=== PATIENT | male | born 1960 | race Caucasian/White ===

== ENCOUNTER 2018-02-09 21:47 | Emergency (ER) | payer BC ==
[~2018-02-09] VITALS: Ht 165.1 cm; Wt 81.6 kg
[~2018-02-09 21:47] MED LIST: AMLODIPINE-BEN1 EAC3 PO; ASPIRIN81 MG PO; LIPITOR20 MG PO
[2018-02-09] MEDS ORDERED: PANTOPRAZOLE SO40 MG PO (21:54)
[2018-02-09] MEDS ORDERED: LOSARTAN POTASS50 MG PO (21:54)
[2018-02-09 22:33] LABS: BASOPHILS # (AUTO) 0.1 (0.0-0.1); BASOPHILS % 0.6 % (0.0-1.0); EOSINOPHILS # (AUTO) 0.3 (0.0-0.4); EOSINOPHILS % 2.9 % (0.0-6.0); HEMATOCRIT 41.9 % (38.2-49.6); HEMOGLOBIN 14.8 g/dL (14.0-18.0); LYMPHOCYTES # (AUTO) 2.2 (1.0-3.2); LYMPHOCYTES % 25.6 % (18.0-39.1); MEAN CORPUSCULAR HEMOGLOBIN 30.6 pg (28-32); MEAN CORPUSCULAR HGB CONC 35.3 g/dL (31-35); MEAN CORPUSCULAR VOLUME 86.7 fL (81-99); MONOCYTES # (AUTO) 0.6 (0.2-0.8); MONOCYTES % 6.8 % (4.4-11.3); NEUTROPHILS # (AUTO) 5.4 (2.1-6.9); NEUTROPHILS % 63.7 % (38.7-80.0); PLATELET COUNT 267 x10e3/uL (140-360); RED BLOOD COUNT 4.83 x10e6/uL (4.3-5.7); RED CELL DISTRIBUTION WIDTH 11.9 % (11.7-14.4)
[2018-02-09 22:35] LABS: CLARITY,URINE CLEAR (CLEAR); COLOR,URINE YELLOW (YELLOW); LEUKOCYTE ESTERASE ,URINE NEGATIVE (NEGATIVE); NITRITE,URINE NEGATIVE (NEGATIVE)
[2018-02-09 22:36] LABS: BILIRUBIN,URINE NEGATIVE (NEGATIVE); KETONES,URINE NEGATIVE (NEGATIVE); PROTEIN,URINE DIPSTICK TRACE (NEGATIVE); URINE UROBILINOGEN 0.2 mg/dL (0.2 - 1)
[2018-02-09 22:43] LABS: AMYLASE 67 U/L (25-125)
[2018-02-09 22:45] LABS: WBC,URINE (MAN) 0-5 /HPF (0-5)
[2018-02-09 22:46] LABS: BACTERIA,URINE FEW /HPF; EPITHELIAL CELLS,URINE RARE /LPF; RBC,URINE 21-50 /HPF (0-5)
[2018-02-09 22:51] LABS: ALBUMIN 3.8 g/dL (3.5-5.0); ALBUMIN/GLOBULIN RATIO 1.2 (0.8-2.0); ANION GAP 13.4 mmol/L (8-16); CALCIUM 9.2 mg/dL (8.4-10.2); CREATININE, SERUM 1.26 mg/dL (0.72-1.25); POTASSIUM 3.4 mmol/L (3.5-5.1)
[2018-02-09 23:12] LABS: LIPASE 48 U/L (8-78)
--- NOTE | 2018-02-10 00:21 | Diagnostic Imaging Report ---
EXAM: CT ABDOMEN/PELVIS WO DATE: 02/09/2018 10:51 PM INDICATION: Kidney stone, left-sided flank pain COMPARISON: None TECHNIQUE: The abdomen and pelvis were scanned using a multidetector helical scanner. Coronal and sagittal reformations were obtained. IV Contrast: 0 ml Isovue 300/370 FINDINGS: Lack of IV contrast decreases sensitivity in evaluating abdominal and pelvic organs. LOWER THORAX: No consolidations LIVER/BILIARY: No masses. No ductal dilatation. GALLBLADDER: Cholelithiasis. Otherwise unremarkable SPLEEN: Unremarkable PANCREAS: Unremarkable ADRENALS: No nodules KIDNEYS: No stones. No hydronephrosis. There is a 1.8 cm benign-appearing right inferior renal cystic lesion. GI TRACT: No wall thickening or evidence of obstruction. Diverticulosis. Normal appendix. VESSELS: Scattered atherosclerotic calcifications. PERITONEUM/RETROPERITONEUM: No free air or fluid LYMPH NODES: No lymphadenopathy REPRODUCTIVE ORGANS/BLADDER: Unremarkable SOFT TISSUES: Small fat-containing umbilical and left inguinal hernia. BONES: Degenerative changes, worse of the right greater than left L5-S1 facet joints. IMPRESSION: No nephrolithiasis or obstructive uropathy. Signed by: Dr Jessie Diaz MD on 02/10/2018 12:17 AM
== END 2018-02-10 01:00 | disposition home or self-care (01) ==
LOC: ER 21:47
DX: R31.9 Hematuria, unspecified (principal); R10.9 Unspecified abdominal pain; K40.90 Unilateral inguinal hernia, without obstruction or gangrene, not specified as recurrent; I10 Essential (primary) hypertension
CPT/HCPCS: 36415; 74176; 80053; 81001; 82150; 83605; 83690; 85025; 99284

== ENCOUNTER 2018-09-07 21:57 | Emergency (ER) | payer BC, OTHER ==
[~2018-09-07] VITALS: Ht 165.1 cm; Wt 81.6 kg
[~2018-09-07 21:57] MED LIST changes: +LOSARTAN POTASS50 MG PO; +PANTOPRAZOLE SO40 MG PO
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
--- OUTSIDE RECORDS SUMMARY | 2018-09-07 22:01 | XMS REPORT | Continuity of Care Document ---
Author Author [facility] Interface Address Unknown Phone Unavailable Problems Problem Status Onset Date Classification Date Reported Comments Source Feeling feverish 10/13/2017 Diagnosis 10/13/2017 [facility] Acute pharyngitis 10/13/2017 Diagnosis 10/13/2017 [facility] Acute conjunctivitis 10/13/2017 Diagnosis 10/13/2017 [facility] Allergic rhinitis 10/13/2017 Diagnosis 10/13/2017 [facility] Acute sinusitis 10/13/2017 Diagnosis 10/13/2017 [facility] Body mass index 30+ - obesity 10/13/2017 Diagnosis 10/13/2017 [facility] Hypertensive disorder 10/13/2017 Diagnosis 10/13/2017 [facility] Hypercholesterolemia 10/13/2017 Problem 10/13/2017 [facility] Hypertensive Disorder 10/13/2017 Problem 10/13/2017 [facility] Infection of skin 04/02/2017 Diagnosis 04/02/2017 [facility] Rhinitis 04/02/2017 Diagnosis 04/02/2017 [facility] Acute Sinusitis Problem 07/06/2017 [facility] Noninfectious Gastroenteritis Problem 07/06/2017 [facility] Contact Dermatitis Due to Plants, Except Food Problem 07/06/2017 [facility] Medications Medication Details Route Status Patient Instructions Ordering Provider Order Date Source atorvastatin 10 MG Oral Tablet atorvastatin 10 mg tablet TK 1 T PO QHS Active [facility] atorvastatin 20 MG Oral Tablet atorvastatin 20 mg tablet TK 1 T PO ONCE D Active [facility] benzonatate 200 MG Oral Capsule benzonatate 200 mg capsule TK ONE C PO TID PRN Active [facility] doxycycline hyclate 100 MG Oral Capsule doxycycline hyclate 100 mg capsule Take 1 capsule twice a day by oral route for 10 days. Active [facility] Fluticasone propionate 0.05 MG/ACTUAT Metered Dose Nasal [place] fluticasone 50 mcg/actuation nasal spray,suspension [place] 1 spray twice a day by intranasal route for 14 days. Active [facility] levocetirizine dihydrochloride 5 MG Oral Tablet levocetirizine 5 mg tablet TK 1 T PO QD PRN Active [facility] Losartan Potassium 50 MG Oral Tablet losartan 50 mg tablet TK 1 T PO ONCE D FOR BP Active [facility] Acetaminophen 500 MG Oral Tablet [Mapap] Mapap Extra Strength 500 mg tablet TK 2 TS PO Q 8 H PRN P Active [facility] pantoprazole 40 MG Delayed Release Oral Tablet pantoprazole 40 mg tablet,delayed release TK 1 T PO ONCE D FOR STOMACH ACID Active [facility] Polymyxin B 73864 UNT/ML / Trimethoprim 1 MG/ML Ophthalmic Solution polymyxin B sulfate 10,000 unit-trimethoprim 1 mg/mL eye drops INSTILL 1 DROP INTO AFFECTED EYE(S) BY OPHTHALMIC ROUTE EVERY 6 HOURS x 7 days Active [facility] 0.5 ML diphtheria toxoid vaccine, inactivated 4 UNT/ML / tetanus toxoid vaccine, inactivated 4 UNT/ML Injection tetanus-diphtheria toxoids- Td 2 Lf unit-2 Lf unit/0.5 mL IM suspension IMMUNIZATION GIVEN Active [facility] Cephalexin 500 MG Oral Capsule [Keflex] Keflex 500 mg capsule Take 1 capsule every 12 hours by oral route as directed for 10 days. Active [facility] Mupirocin 0.02 MG/MG Topical Ointment mupirocin 2 % topical ointment APPLY A SMALL AMOUNT TO THE AFFECTED AREA BY TOPICAL ROUTE 1 TIME PER DAY X 7 DAYS. Active [facility] Amoxicillin 875 MG / Clavulanate 125 MG Oral Tablet [Augmentin] Augmentin 875 mg-125 mg tablet Take 1 tablet every 12 hours by oral route with meals for 10 days. Active [facility] Aspirin 81 Mg Tab.chew Daily Active [facility] Atorvastatin Calcium (Lipitor) 20 Mg Tablet Daily Active [facility] Losartan Potassium 50 Mg Tablet Daily Active [facility] Pantoprazole Sodium (Protonix) 40 Mg Tablet.dr Daily Active [facility] Allergies, Adverse Reactions, Alerts Substance Category Reaction Severity Reaction type Status Date Reported Comments Source Levaquin Allergy to substance 08/18/2010 [facility] Levofloxacin PHELIBITIS, ITCHING Severe Allergy to Substance Active 10/27/2012 [facility] Immunizations Immunization Date Given Site Status Last Updated Comments Source Td (adult) 07/09/2017 completed [facility] influenza, unspecified formulation 05/11/2016 completed [facility] Tdap 07/11/2004 completed [facility] Results Order Name Results Value Reference Range Date Interpretation Comments Source Automated blood basophil count (count/volume) Automated blood basophil count (count/volume) 0.1 0.0 - 0.1 02/09/2018 [facility] Automated blood basophil count as percentage of total leukocytes Automated blood basophil count as percentage of total leukocytes 0.6 0.0 - 1.0 02/09/2018 [facility] Automated blood eosinophil count Automated blood eosinophil count 0.3 0.0 - 0.4 02/09/2018 [facility] Automated blood eosinophil count as percentage of total leukocytes Automated blood eosinophil count as percentage of total leukocytes 2.9 0.0 - 6.0 02/09/2018 [facility] Automated blood hematocrit (volume fraction) Automated blood hematocrit (volume fraction) 41.9 38.2 - 49.6 02/09/2018 [facility] Automated blood lymphocyte count as percentage ot total leukocytes Automated blood lymphocyte count as percentage ot total leukocytes 25.6 18.0 - 39.1 02/09/2018 [facility] Automated blood monocyte count as percentage of total leukocytes Automated blood monocyte count as percentage of total leukocytes 6.8 4.4 - 11.3 02/09/2018 [facility] Automated blood neutrophil count Automated blood neutrophil count 5.4 2.1 - 6.9 02/09/2018 [facility] Automated blood platelet count (count/volume) Automated blood platelet count (count/volume) 267 140 - 360 02/09/2018 [facility] Automated blood segmented neutrophil count as percentage of total leukocytes Automated blood segmented neutrophil count as percentage of total leukocytes 63.7 38.7 - 80.0 02/09/2018 [facility] Automated erythrocyte mean corpuscular hemoglobin (mass per erythrocyte) Automated erythrocyte mean corpuscular hemoglobin (mass per erythrocyte) 30.6 28 - 32 02/09/2018 [facility] Automated erythrocyte mean corpuscular hemoglobin concentration measurement (mass/volume) Automated erythrocyte mean corpuscular hemoglobin concentration measurement (mass/volume) 35.3 31 - 35 02/09/2018 [facility] Automated erythrocyte mean corpuscular volume Automated erythrocyte mean corpuscular volume 86.7 81 - 99 02/09/2018 [facility] Automated urine sediment leukocyte count by microscopy (number/high power field) Automated urine sediment leukocyte count by microscopy (number/high power field) null 0 - 5 02/09/2018 [facility] Bacteria detection in urine sediment by light microscopy Bacteria detection in urine sediment by light microscopy FEW NONE 02/09/2018 [facility] Blood erythrocytes automated count (number/volume) Blood erythrocytes automated count (number/volume) 4.83 4.3 - 5.7 02/09/2018 [facility] Blood hemoglobin measurement (moles/volume) Blood hemoglobin measurement (moles/volume) 14.8 14.0 - 18.0 02/09/2018 [facility] Blood leukocytes automated count (number/volume) Blood leukocytes automated count (number/volume) 8.52 4.8 - 10.8 02/09/2018 [facility] Blood lymphocytes count (number/volume) Blood lymphocytes count (number/volume) 2.2 1.0 - 3.2 02/09/2018 [facility] Blood monocytes automated count (number/volume) Blood monocytes automated count (number/volume) 0.6 0.2 - 0.8 02/09/2018 [facility] Epithelial cells detection in urine sediment by light microscopy Epithelial cells detection in urine sediment by light microscopy RARE NONE 02/09/2018 [facility] Erythrocytes detection in urine sediment by light microscopy Erythrocytes detection in urine sediment by light microscopy null 0 - 5 02/09/2018 [facility] Estimated glomerular filtration rate (GFR) determination Estimated glomerular filtration rate (GFR) determination 59 60 02/09/2018 [facility] Glucose measurement Glucose measurement 151 74 - 118 02/09/2018 [facility] Plasma globulin measurement (mass/volume) Plasma globulin measurement (mass/volume) 3.2 2.3 - 3.5 02/09/2018 [facility] Serum or plasma alanine aminotransferase measurement (enzymatic activity/volume) Serum or plasma alanine aminotransferase measurement (enzymatic activity/volume) 26 0 - 55 02/09/2018 [facility] Serum or plasma albumin measurement (mass/volume) Serum or plasma albumin measurement (mass/volume) 3.8 3.5 - 5.0 02/09/2018 [facility] Serum or plasma albumin/globulin mass ratio Serum or plasma albumin/globulin mass ratio 1.2 0.8 - 2.0 02/09/2018 [facility] Serum or plasma alkaline phosphatase measurement (enzymatic activity/volume) Serum or plasma alkaline phosphatase measurement (enzymatic activity/volume) 74 40 - 150 02/09/2018 [facility] Serum or plasma amylase measurement (enzymatic activity/volume) Serum or plasma amylase measurement (enzymatic activity/volume) 67 25 - 125 02/09/2018 [facility] Serum or plasma anion gap Serum or plasma anion gap 13.4 8 - 16 02/09/2018 [facility] Serum or plasma calcium measurement (mass/volume) Serum or plasma calcium measurement (mass/volume) 9.2 8.4 - 10.2 02/09/2018 [facility] Serum or plasma carbon dioxide, total measurement (moles/volume) Serum or plasma carbon dioxide, total measurement (moles/volume) 23 22 - 29 02/09/2018 [facility] Serum or plasma chloride measurement (moles/volume) Serum or plasma chloride measurement (moles/volume) 106 98 - 107 02/09/2018 [facility] Serum or plasma creatinine measurement (mass/volume) Serum or plasma creatinine measurement (mass/volume) 1.26 0.72 - 1.25 02/09/2018 [facility] Serum or plasma lipase measurement (enzymatic activity/volume) Serum or plasma lipase measurement (enzymatic activity/volume) 48 8 - 78 02/09/2018 [facility] Serum or plasma potassium measurement (moles/volume) Serum or plasma potassium measurement (moles/volume) 3.4 3.5 - 5.1 02/09/2018 [facility] Serum or plasma protein measurement (mass/volume) Serum or plasma protein measurement (mass/volume) 7.0 6.5 - 8.1 02/09/2018 [facility] Serum or plasma sodium measurement (moles/volume) Serum or plasma sodium measurement (moles/volume) 139 136 - 145 02/09/2018 [facility] Serum or plasma total bilirubin measurement (mass/volume) Serum or plasma total bilirubin measurement (mass/volume) 0.8 0.2 - 1.2 02/09/2018 [facility] Serum or plasma urea nitrogen measurement (mass/volume) Serum or plasma urea nitrogen measurement (mass/volume) 16 7 - 26 02/09/2018 [facility] Serum or plasma urea nitrogen/creatinine mass ratio Serum or plasma urea nitrogen/creatinine mass ratio 13 6 - 25 02/09/2018 [facility] Specific gravity of Urine by Test strip Specific gravity of Urine by Test strip 1.020 1.010 - 1.025 02/09/2018 [facility] Urine clarity Urine clarity CLEAR CLEAR 02/09/2018 [facility] Urine color determination Urine color determination YELLOW YELLOW 02/09/2018 [facility] Urine erythrocytes detection Urine erythrocytes detection 2+ NEGATIVE 02/09/2018 [facility] Urine glucose detection Urine glucose detection NEGATIVE NEGATIVE 02/09/2018 [facility] Urine ketones detection by automated test strip Urine ketones detection by automated test strip NEGATIVE NEGATIVE 02/09/2018 [facility] Urine leukocyte esterase detection by dipstick Urine leukocyte esterase detection by dipstick NEGATIVE NEGATIVE 02/09/2018 [facility] Urine nitrite detection Urine nitrite detection NEGATIVE NEGATIVE 02/09/2018 [facility] Urine pH measurement by automated test strip Urine pH measurement by automated test strip 6 5 - 7 02/09/2018 [facility] Urine protein measurement by test strip (mass/volume) Urine protein measurement by test strip (mass/volume) TRACE NEGATIVE 02/09/2018 [facility] Urine total bilirubin measurement (mass/volume) Urine total bilirubin measurement (mass/volume) NEGATIVE NEGATIVE 02/09/2018 [facility] Urine urobilinogen measurement by test strip (mass/volume) Urine urobilinogen measurement by test strip (mass/volume) 0.2 0.2 - 1 02/09/2018 [facility] Red Cell Distribution Width 11.9 11.7 - 14.4 02/09/2018 [facility] IM GRANULOCYTES % 0.4 0.0 - 1.0 02/09/2018 [facility] Absolute Immature Granulocyte (auto 0.03 0 - 0.1 02/09/2018 [facility] Lactic Acid Level 14.3 4.5 - 19.8 02/09/2018 [facility] Aspartate Amino Transf (AST/SGOT) 23 5 - 34 02/09/2018 [facility] Adenovirus Ag [Presence] in Unspecified specimen by Immunoassay RESULT negative 10/13/2017 [facility] Adenovirus Ag [Presence] in Unspecified specimen by Immunoassay SWAB LOCATION Right Conjunctiva 10/13/2017 [facility] Influenza A negative 10/13/2017 [facility] Influenza B negative 10/13/2017 [facility] RESULT negative 10/13/2017 [facility] SWAB LOCATION Left and Right tonsillar pillars 10/13/2017 [facility] Influenza A negative 07/06/2017 [facility] Influenza B negative 07/06/2017 [facility] Vital Signs Vital Sign Value Date Comments Source Diastolic (mm Hg) 92 10/13/2017 [facility] Height 65 10/13/2017 [facility] Systolic (mm Hg) 150 10/13/2017 [facility] Weight 180 10/13/2017 [facility] Diastolic (mm Hg) 82 07/06/2017 [facility] Height 65 07/06/2017 [facility] Systolic (mm Hg) 126 07/06/2017 [facility] Weight 175 07/06/2017 [facility] Diastolic (mm Hg) 90 04/02/2017 [facility] Height 65 04/02/2017 [facility] Systolic (mm Hg) 138 04/02/2017 [facility] Weight 180 04/02/2017 [facility] Encounters Location Location Details Encounter Type Encounter Number Reason For Visit Attending Provider ADM Date DC Date Status Source [place] - [facility] - [id number] ChowP-C: [address], [place] [address], Ph. [id number] Leah Aleshia 04/02/2017 [facility] [place] - [facility] - [id number] Nolberto Hernandez, ACTIVATED SLUDGE OPERATOR-C: [address] [facility], [place] [address], Ph. [phone] [id number] Nolberto Hernandez 07/06/2017 [facility] [place] [facility] - [id number] Abigail Ramirez, ACTIVATED [employer]UD[employer] OPERATOR-C: [address] [facility], [place] [address], Ph. [id number] Abigail Ramirez 10/13/2017 [facility] Departed Emergency Room [id number] DEMETRIUS MILAN MD 02/09/2018 02/10/2018 [facility] Procedures Procedure Code Date Perfomer Comments Source CT of abdomen and pelvis without contrast [id number] 02/09/2018 [facility]
--- OUTSIDE RECORDS SUMMARY | 2018-09-07 22:01 | XMS REPORT | Encounter Summary ---
Author Organization Unknown Address [address] [place] [address] Phone [phone] Care Team Providers Care Delivery Clerk Name Role Phone Obdulio Bass MD 3 [phone] Reason for Visit Medical Complaint Instructions 1. Acute sinusitis sinusitis: care instructions Augmentin 875 mg-125 mg tablet benzonatate 200 mg capsule 2. Feeling feverish rapid flu (A+B) Discussion Note: None recorded. Plan of Care Patient Instructions continue with jake bowen as needed. follow up pcp Reminders Provider Appointments None recorded. Lab Rapid Flu (A+B) 07/06/2017 [facility] Referral None recorded. Procedures None recorded. Surgeries None recorded. Imaging None recorded. Medications Name Start Date atorvastatin 10 mg tablet TK 1 T PO QHS atorvastatin 20 mg tablet TK 1 T PO ONCE D Augmentin 875 mg-125 mg tablet Take 1 tablet every 12 hours by oral route with meals for 10 days. benzonatate 200 mg capsule Take 1 capsule 3 times a day by oral route as needed. fluticasone 50 mcg/actuation nasal spray,suspension USE 2 SPRAYS IEN PRN FOR 10 DAYS levocetirizine 5 mg tablet TK 1 T PO QD PRN losartan 50 mg tablet TK 1 T PO ONCE D FOR BP Mapap Extra Strength 500 mg tablet TK 2 TS PO Q 8 H PRN P pantoprazole 40 mg tablet,delayed release TK 1 T PO ONCE D FOR STOMACH ACID tetanus-diphtheria toxoids-Td 2 Lf unit-2 Lf unit/0.5 mL IM suspension IMMUNIZATION GIVEN Medications Administered None recorded. Vitals Height Weight BMI Blood Pressure 5 ft 5 in 175 lbs 29.1 kg/m2 126/82 mm[Hg] Lab Results Date Name Specimen Result Interpretation Description Value Range Status Address Rapid Flu (A+B) Influenza a negative [facility]: [address] [place] [address] Influenza B negative [facility]: [address] [place] [address] Allergies Code Code System Name Reaction Severity Status Onset 952705 RxNorm Levaquin Active Problems Name Status Onset Date Source Acute Sinusitis Active Encounter Noninfectious Gastroenteritis Active Encounter Contact Dermatitis Due to Plants, Except Food Active Encounter Procedures None recorded. Vaccine List Vaccine Type influenza, unspecified formulation 05/11/2016 Tdap 07/11/2004 Social History Smoking Status Never Smoker Past Encounters 07/06/2017 Acute Sinusitis; Feeling Feverish Nolberto Hernandez, [employer]-C: [address] [facility], [place] [address], Ph. History of Present Illness Earas-Eyzkscsgrc-Pvtrffg Reported By: Patient HPI: Location: head/sinuses, chest. Quality: productive cough, colored phlegm, nasal/sinus congestion. Duration: 7days. Severity: moderate. Onset/Timing: gradual. Context: no sick contacts, no foreign travel, non-smoker. Modifying factors: OTC medication. Associated Symptoms: no shortness of breath, no wheezing, no change in number of pillows needed to sleep at night, no sweats, no significant weight gain, no significant weight loss, no morning cough, no sore throat, no vomiting, no diarrhea, no rash, no nausea, no fever, no muscle aches, no headache, green sputum Review of Systems:ROS as noted in the HPI Review of Systems Basic Reported By: Patient Physical Exam Adult Basic, Adult Male Complete Reported By: Patient Constitutional: General Appearance: healthy-appearing, well-nourished, well-developed. Level of Distress: NAD. Ambulation: ambulating normally Psychiatric: Mental Status: active and alert Eyes: Lids and Conjunctivae: non-injected, no discharge Hnq-Jfmq-Gouff-Throat: Ears: no lesions on external ear, no outer ear tenderness, EACs clear, TMs clear, TM mobility normal. Hearing: no hearing loss. Nose: no lesions on external nose, sinus tenderness, nasal discharge--purulent; congestion. Lips, Teeth, and Gums: no mouth or lip ulcers. Oropharynx: moist mucous membranes, no erythema, no exudates, tonsils not enlarged Neck: Neck: trachea midline. Lymph Nodes: no cervical LAD Lungs: Respiratory effort: no dyspnea, no tachypnea, no use of accessory muscles, no intercostal retractions. Auscultation: breath sounds normal, good air movement Cardiovascular: Heart Auscultation: RRR, no murmurs
--- OUTSIDE RECORDS SUMMARY | 2018-09-07 22:01 | XMS REPORT ---
Author Author [facility] Address Unknown Phone Unavailable Care Team Providers Care Electronic Resources Librarian Name Role Phone Kassi MILAN Unavailable Unavailable Problems This patient has no known problems. Allergies, Adverse Reactions, Alerts This patient has no known allergies or adverse reactions. Medications This patient has no known medications. Results Test Description Test Time Test Comments Text Results Atomic Results Result Comments CT ABDOMEN/PELVIS WO 2018-02-10 00:13:00 [place] [address] Patient Name: DELIO BENEDICT MR #: [id number] : 1960 Age/Sex: 57/M Req #: [id number] Adm Physician: Ordered by: DEMETRIUS MILAN MD Report #: [id number] Location: ER Room/Bed: Procedure: [id number] CT/CT ABDOMEN/PELVIS WO Exam Date: Exam Time: REPORT STATUS: Signed EXAM: CT ABDOMEN/PELVIS WO DATE: 02/09/2018 10:51 PM INDICATION: Kidney stone, left-sided flank pain COMPARISON: None TECHNIQUE: The abdomen and pelvis were scanned using a multidetector helical scanner. Coronal and sagittal reformations were obtained. IV Contrast: 0 ml Isovue 300/370 FINDINGS: Lack of IV contrast decreases sensitivity in evaluating abdominal and pelvic organs. LOWER THORAX: No consolidations LIVER/BILIARY: No masses. No ductal dilatation. GALLBLADDER: Cholelithiasis. Otherwise unremarkable SPLEEN: Unremarkable PANCREAS: Unremarkable ADRENALS: No nodules KIDNEYS: No stones. No hydronephrosis. There is a 1.8 cm benign- appearing right inferior renal cystic lesion. GI TRACT: No wall thickening or evidence of obstruction. Diverticulosis. Normal appendix. VESSELS: Scattered atherosclerotic calcifications. PERITONEUM/RETROPERITONEUM: No free air or fluid LYMPH NODES: No lymphadenopathy REPRODUCTIVE ORGANS/BLADDER: Unremarkable SOFT TISSUES: Small fat-containing umbilical and left inguinal hernia. BONES: Degenerative changes, worse of the right greater than left L5- S1 facet joints. IMPRESSION: No nephrolithiasis or obstructive uropathy. Signed by: Dr Ju Diaz MD on 02/10/2018 12:17 AM Dictated By: JU DIAZ MD Transcribed By: WILLIAM on 02/10/1816 COPY TO: DEMETRIUS MILAN MD
--- OUTSIDE RECORDS SUMMARY | 2018-09-07 22:01 | XMS REPORT | Encounter Summary ---
Author Organization Unknown Address [address] [place] [address] Phone [phone] Care Team Providers Care Bulldozer Operator Name Role Phone Obdulio Bass MD 3 [phone] Reason for Visit Medical Complaint Instructions 1. Acute sinusitis sinusitis: care instructions fluticasone 50 mcg/actuation nasal spray,suspension doxycycline hyclate 100 mg capsule 2. Acute conjunctivitis pinkeye: care instructions polymyxin B sulfate 10,000 unit-trimethoprim 1 mg/mL eye drops adenovirus Ag, Immunoassay 3. Allergic rhinitis allergies: care instructions 4. Acute pharyngitis rapid strep group A, throat 5. Feeling feverish rapid flu (A+B) 6. Hypertensive disorder elevated blood pressure: care instructions 7. Body mass index 30+ - obesity A healthy lifestyle: care instructions Discussion Note: None recorded. Plan of Care Patient Instructions See care instructions provided. Reminders Provider Appointments None recorded. Lab Adenovirus Ag, Immunoassay 10/13/2017 [facility] Rapid Strep Group a, Throat 10/13/2017 [facility] Rapid Flu (A+B) 10/13/2017 [facility] Referral None recorded. Procedures None recorded. Surgeries None recorded. Imaging None recorded. Medications Name Start Date atorvastatin 10 mg tablet TK 1 T PO QHS atorvastatin 20 mg tablet TK 1 T PO ONCE D benzonatate 200 mg capsule TK ONE C PO TID PRN doxycycline hyclate 100 mg capsule Take 1 capsule twice a day by oral route for 10 days. fluticasone 50 mcg/actuation nasal spray,suspension Thornton 1 spray twice a day by intranasal route for 14 days. levocetirizine 5 mg tablet TK 1 T PO QD PRN losartan 50 mg tablet TK 1 T PO ONCE D FOR BP Mapap Extra Strength 500 mg tablet TK 2 TS PO Q 8 H PRN P pantoprazole 40 mg tablet,delayed release TK 1 T PO ONCE D FOR STOMACH ACID polymyxin B sulfate 10,000 unit-trimethoprim 1 mg/mL eye drops INSTILL 1 DROP INTO AFFECTED EYE(S) BY OPHTHALMIC ROUTE EVERY 6 HOURS x 7 days tetanus-diphtheria toxoids-Td 2 Lf unit-2 Lf unit/0.5 mL IM suspension IMMUNIZATION GIVEN Medications Administered None recorded. Vitals Height Weight BMI Blood Pressure 5 ft 5 in 180 lbs 30 kg/m2 (1) 154/92 mm[Hg] (2) 150/92 mm[Hg] Lab Results Date Name Specimen Result Interpretation Description Value Range Status Address Rapid Flu (A+B) Influenza a negative [facility]: [address] [place] [address] Influenza B negative [facility]: [address] [facility] Rapid Strep Group a, Throat Result negative [facility]: [address] [facility] Swab Location Left and Right tonsillar pillars [facility]: [address] [place] [address] Adenovirus Ag, Immunoassay Result negative [facility]: [address] [place] [address] Swab Location Right Conjunctiva [facility]: [address] [place] [address] Allergies Code Code System Name Reaction Severity Status Onset 441722 RxNorm Levaquin Active Problems Name Status Onset Date Source Hypercholesterolemia Active 10/13/2017 Hypertensive Disorder Active 10/13/2017 Procedures None recorded. Vaccine List Vaccine Type influenza, unspecified formulation 05/11/2016 Td (adult) 07/09/2017 Tdap 07/11/2004 Social History Smoking Status Never Smoker Past Encounters 10/13/2017 Acute Sinusitis; Acute Conjunctivitis; Allergic Rhinitis; Acute Pharyngitis; Feeling Feverish; Hypertensive Disorder; Body Mass Index 30+ - Obesity Abigail James ACCOUNTING ANALYST-C: [address] [place] [address], Ph. History of Present Illness Lxdji-Wopkwqestx-Gjqcroj Reported By: Patient HPI: Location: head/sinuses. Quality: productive cough, sore throat, colored phlegm, nasal/sinus congestion. Duration: 7days. Context: no sick contacts, no foreign travel, non-smoker, allergies. Modifying factors: OTC medication. Associated Symptoms: no shortness of breath, no wheezing, no change in number of pillows needed to sleep at night, no sweats, no significant weight gain, no significant weight loss, no morning cough, no sore throat, no vomiting, no diarrhea, no rash, no nausea, no fever, no muscle aches, no headache, yellow-green, thick sputum, sweats; b/l eyes with crusting and drainage this morning Review of Systems:ROS as noted in the HPI Review of Systems Basic Reported By: Patient Physical Exam Adult Basic, Adult Male Complete Reported By: Patient Constitutional: General Appearance: healthy-appearing, well-nourished, well-developed. Level of Distress: NAD. Ambulation: ambulating normally Psychiatric: Mental Status: active and alert. Orientation: to time, to place, to person Eyes: Lids and Conjunctivae: no pallor, injected, discharge. Pupils: PERRLA. EOM: EOMI Eng-Niwu-Ytxju-Throat: Ears: no lesions on external ear, no outer ear tenderness, EACs clear, TM opacified, middle ear fluid. Hearing: no hearing loss. Nose: no lesions on external nose, no septal deviation, nasal obstruction, sinus tenderness, nasal discharge, nasal discharge--purulent, post nasal drip. Lips, Teeth, and Gums: no mouth or lip ulcers, no bleeding gums, normal dentition. Oropharynx: moist mucous membranes, no exudates, tonsils not enlarged, erythema Lungs: Respiratory effort: no dyspnea, no tachypnea, no use of accessory muscles, no intercostal retractions. Auscultation: breath sounds normal Cardiovascular: Heart Auscultation: RRR, no murmurs
[2018-09-07] MEDS ORDERED: VANCOMYCIN 1GM/NS 250 ML 250 ML IV ONE (23:30)
--- NOTE | 2018-09-08 00:08 | Diagnostic Imaging Report ---
Hand Complete CPT code: 82375 Indication:Laceration of second digit. Technique: Three views of the left hand obtained Comparison: None. Findings: Distal radius and ulna appear intact. Carpal bones appear generally well aligned. No fracture or dislocation. No periosteal new bone formation. Mild degenerative changes of the distal IP joint of the second digit and the second MCP. There is diffuse soft tissue swelling of the second digit. There are small foci of suspected subcutaneous emphysema at the volar aspect of the second digit at the level of the proximal phalanx. No radio-opaque foreign bodies. IMPRESSION: No radiographic evidence of osteomyelitis. Signed by: Dr. Brannon Aguirre MD on 09/08/2018 12:04 AM
== END 2018-09-08 02:30 | disposition other institution (70) ==
LOC: FSED 21:57
DX: L03.012 Cellulitis of left finger (principal); M79.645 Pain in left finger(s); M65.842 Other synovitis and tenosynovitis, left hand
CPT/HCPCS: 73130; 80053; 85025; 87040; 99284; J3370